=== PATIENT | male | born 1960 | race American Indian/Alaskan Native ===

== ENCOUNTER 2018-03-29 13:26 | Emergency (ER) | payer SELFPAY ==
--- NOTE | 2018-03-29 14:31 | Emergency Department Report ---
Blank Doc - Documentation Documentation: This is a 57 y.o. male that presents with low back pain radiating to right flank x 3 days. This initial assessment diagnostic orders/clinical plan/treatment(s) is/are subject to change based on patient's health status, clinical progression and re- assessment by fellow clinical providers in the ED. Further treatment and workup at subsequent clinical providers discretion. Patient/guardians urged not to elope from ED s their condition may be serious if not clinically assessed and managed. Initial orders include: 1- XR of L-spine. 2- Urinalysis Fast track for further evaluation.
[2018-03-29] MEDS ORDERED: NORCO 5/325 PO ONE (15:20)
[2018-03-29] MEDS ORDERED: FLEXERIL PO ONE (15:20)
[2018-03-29 15:22] VITALS: BP 167/77
[2018-03-29] MEDS ORDERED: DECADRON IM STA (15:23)
--- NOTE | 2018-03-29 15:23 | Emergency Department Report ---
ED Back Pain/Injury HPI - General Chief Complaint: Back Pain/Injury Stated Complaint: BACK PAIN Time Seen by Provider: 03/29/18 14:25 Source: patient, family Mode of arrival: Ambulatory Limitations: No Limitations - History of Present Illness Initial Comments: This is a 57-year-old male here reporting that he has right sided back pain to lower back pain 3 days. He states that he has neck and back problems but he thinks he pulled a muscle and he is not sure because he also has chronic back pain. He says he sees Dr. Colin Chua at [facility] and they did a myelogram in 2018 but they did not tell him the results. Pain is 10 out of 10 achy and pulling. Worse with movement and no alleviating factors. Reportedly he did not take any medication prior to coming to emergency room. Denies any radiation of pain. Denies any loss of bowel or bladder function. Reports pain as being constant. Denies any fever or chills or any urinary burning frequency or urgency. Denies any history of kidney stone or any blood in his urine. MD Complaint: back pain Onset/Timin -: days(s) Similar Symptoms Previously: Yes Place: home Radiation: none Severity: severe Severity scale (0 -10): 10 Quality: aching, other (Pulling) Consistency: constant Improves With: none Worsens With: movement, walking Context: unknown Associated Symptoms: denies: confusion, weakness, chest pain, numbness, difficulty walking, cough, difficulty urinating, incontinence, fever/chills, constipation, headaches, abdominal pain, loss of appetite, malaise, nausea/vomiting, rash, seizure, shortness of breath, syncope Treatments Prior to Arrival: other (none) - Related Data Previous Rx's Medication Instructions Recorded Last Taken Type Cyclobenzaprine [Flexeril 10mg] 10 mg PO Q12H PRN #14 tablet 03/29/18 Unknown Rx traMADol [Ultram 50 MG tab] 50 mg PO Q6HR PRN #12 tablet 03/29/18 Unknown Rx Allergies Allergy/AdvReac Type Severity Reaction Status Date / Time No Known Allergies Allergy Unverified 03/29/18 14:25 ED Review of Systems ROS: Stated complaint: BACK PAIN Other details as noted in HPI Constitutional: denies: chills Respiratory: denies: cough, shortness of breath, wheezing Cardiovascular: denies: chest pain, palpitations, edema, syncope Gastrointestinal: denies: abdominal pain, nausea, vomiting, constipation Genitourinary: denies: urgency, dysuria, frequency, hematuria Musculoskeletal: back pain, myalgia. denies: joint swelling, arthralgia Skin: denies: rash Neurological: denies: headache, numbness, paresthesias, confusion, abnormal gait, vertigo ED Past Medical Hx - Past Medical History Previous Medical History?: Yes Hx Arthritis: Yes (neck and back) Additional medical history: DJD, Cervical Spine pain - Surgical History Past Surgical History?: Yes Additional Surgical History: Cervical neck pain - Family History Family history: hypertension - Social History Smoking Status: Never Smoker Substance Use Type: Prescribed - Medications Home Medications: Home Medications Medication Instructions Recorded Confirmed Last Taken Type Cyclobenzaprine [Flexeril 10mg] 10 mg PO Q12H PRN #14 tablet 03/29/18 Unknown Rx traMADol [Ultram 50 MG tab] 50 mg PO Q6HR PRN #12 tablet 03/29/18 Unknown Rx ED Physical Exam - General Limitations: No Limitations General appearance: alert, in no apparent distress - Head Head exam: Present: atraumatic, normocephalic, normal inspection - Eye Eye exam: Present: normal appearance, PERRL, EOMI Pupils: Present: normal accommodation - ENT ENT exam: Present: normal exam, normal orophraynx - Neck Neck exam: Present: normal inspection, full ROM, other (no C-spine tenderness). Absent: tenderness, lymphadenopathy - Respiratory Respiratory exam: Present: normal lung sounds bilaterally. Absent: respiratory distress, chest wall tenderness - Cardiovascular Cardiovascular Exam: Present: regular rate, normal rhythm, normal heart sounds, other (blood pressure is better at 167/77). Absent: systolic murmur, diastolic murmur - GI/Abdominal GI/Abdominal exam: Present: soft, normal bowel sounds. Absent: distended, tenderness, rigid, bruit - Extremities Exam Extremities exam: Present: normal inspection, full ROM, normal capillary refill, other (No cce. + 2 pulses in all extremities, no neurovascular compromise). Absent: tenderness, pedal edema, joint swelling - Back Exam Back exam: Present: normal inspection, full ROM, tenderness, muscle spasm (right lumbar paraspinal area), paraspinal tenderness (right lumbar paraspinal area), other (ambulates without any difficulties). Absent: CVA tenderness (R), CVA tenderness (L), vertebral tenderness, rash noted - Expanded Back Exam Expanded Back exam: Negative Straight Leg Raising: Left, Right - Neurological Exam Neurological exam: Present: alert, oriented X3, normal gait, reflexes normal, other (no focal deficits). Absent: motor sensory deficit - Psychiatric Psychiatric exam: Present: normal affect, normal mood - Skin Skin exam: Present: warm, dry, intact, normal color. Absent: rash ED Course Vital Signs 03/29/18 03/29/18 03/29/18 14:14 14:26 15:19 Temperature 98.6 F 98.8 F Pulse Rate 89 89 86 Respiratory 18 20 Rate Blood Pressure 166/119 Blood Pressure 166/119 167/77 [Left] O2 Sat by Pulse 96 96 Oximetry - Reevaluation(s) Reevaluation #1: 03/29/18 16:19 Patient given [place] 5/325 2 tablets by mouth, Decadron 10 mg IM and Flexeril 10 mg by mouth for lower back pain with relief pain. Reevaluation #2: 03/29/18 16:50 Patient reports that his pain is much better. ED Medical Decision Making - Lab Data Lab Results 03/29/18 Range/Units 15:25 Urine Color Yellow (Yellow) Urine Turbidity Clear (Clear) Urine pH 5.0 (5.0-7.0) Ur Specific [place] 1.030 (1.003-1.030) Urine Protein 30 mg/dl (Negative) mg/dL Urine Glucose (UA) Neg (Negative) mg/dL Urine Ketones Neg (Negative) mg/dL Urine Blood Neg (Negative) Urine Nitrite Neg (Negative) Urine Bilirubin Neg (Negative) Urine Urobilinogen < 2.0 (<2.0) mg/dL Ur Leukocyte Esterase Neg (Negative) Urine WBC (Auto) 1.0 (0.0-6.0) /HPF Urine RBC (Auto) 4.0 (0.0-6.0) /HPF U Epithel Cells (Auto) < 1.0 (0-13.0) /HPF Urine Mucus 1+ /HPF - Radiology Data Radiology results: report reviewed X-ray lumbar sacral spine dictated radiologist report reviewed by myself. [id number]-[id number] degenerative changes lumbar spine. I am unable to postulate report to the site due to radiology malfunction. - Medical Decision Making This 70-year-old male here complaining right lower back pain and he goes to [facility] orthopedic. Please see notes for detail on examination. X-ray lumbar spine: No acute findings except for degenerative disc disease. Urine-normal findings A/P 1-acute exacerbation of chronic back pain 2: Right lumbar spasm Patient was given Flexeril 10 mg by mouth, Decadron 10 mg IM and flexeril 2 tablets by mouth and was relief of pain. I discussed with him his x-ray results and also his urinalysis and told him he needs to follow up with his orthopedic doctor. He voiced understanding. Vital signs stable and he is afebrile and pain is controlled. Patient discharged home with prescription for Ultram and Flexeril. - Differential Diagnosis FX, subluxation, spasm, strain, degenerative disc disease Critical care attestation.: If time is entered above; I have spent that time in minutes in the direct care of this critically ill patient, excluding procedure time. ED Disposition Clinical Impression: Acute exacerbation of chronic low back pain, Spasm of muscle of lower back Disposition: DC-01 TO HOME OR SELFCARE Is pt being admited?: No Does the pt Need Aspirin: No Condition: Stable Instructions: Muscle Spasm (ED), Chronic Back Pain (ED), Core Strengthening Exercises (GEN) Additional Instructions: Please follow-up with your orthopedic doctor at [facility] orthopedic 3 to 5 days Take medication as prescribed please do not drive or operate heavy machinery while taking Flexeril or Ultram as these medication can cause drowsiness Return to the emergency room, if his symptoms worsen Prescriptions: Cyclobenzaprine [Flexeril 10mg] 10 mg PO Q12H PRN #14 tablet PRN Reason: Spasms traMADol [Ultram 50 MG tab] 50 mg PO Q6HR PRN #12 tablet PRN Reason: Pain Referrals: [facility], orthopedics [Other] - 3-5 Days Forms: Work/School Release Form(ED)
[2018-03-29 15:42] LABS: Bilirubin,Urine NEG (Negative); Blood,Urine NEG (Negative); Color,Urine Yellow (Yellow); Mucus,Urine 1+ /HPF; Urobilinogen,Urine < 2.0 mg/dL (<2.0)
--- NOTE | 2018-03-29 15:42 | XRay Report ---
FINAL REPORT EXAM: XR SPINE LUMBOSACRAL 2-3V HISTORY: low back pain COMPARISON: None. TECHNIQUE: Four views of the lumbar spine FINDINGS: There is no acute fracture or dislocation. There is grade 1 retrolisthesis of L4 on L5. There is diff use intervertebral disc space narrowing throughout the lumbar spine, most severe at L5-S1. There is m oderate facet arthropathy in the lower lumbar spine. The paravertebral soft tissues are normal. IMPRESSION: [id number] degenerative changes of the lumbar spine without acute fracture or dislocation.
== END 2018-03-29 17:44 | disposition home or self-care (01) ==
LOC: ED 13:26
DX: G89.29 Other chronic pain (principal); M54.5 Low back pain; M19.90 Unspecified osteoarthritis, unspecified site
CPT/HCPCS: 72100; 81001; 96372; 99284; J1100

== ENCOUNTER 2018-06-21 23:35 | Emergency (ER) | payer SELFPAY ==
[2018-06-22] MEDS ORDERED: BOOSTRIX IM ONE (08:19)
[2018-06-22] MEDS ORDERED: IBUPROFEN PO ONE (08:19)
--- NOTE | 2018-06-22 08:42 | Emergency Department Report ---
- General Chief complaint: Extremity Injury, Lower Stated complaint: RT FOOT INJURY Time Seen by Provider: 06/22/18 07:53 Source: patient Mode of arrival: Ambulatory Limitations: No Limitations - History of Present Illness Initial comments: This is a 57-year-old male nontoxic, well nourished in appearance, no acute signs of distress presents to the ED with c/o of right foot puncture wound. Patient stated that he slipped on a rug tacks on a carpeted barefoot last night. Patient denies any other injury or trauma. Patient stated he is currently diabetic. Patient denies any allergies. Patient denies any numbness, tingling, decreased sensation, fever, chills, nausea, vomiting, chest pain, shortness of breath, headache or stiff neck. -: Last night Tetanus Up to Date: no Location: R foot Severity: mild Quality: aching Consistency: constant Improves with: none Worsens with: none Associated symptoms: denies other symptoms Treatments Prior to Arrival: none - Related Data Previous Rx's Medication Instructions Recorded Last Taken Type Cyclobenzaprine [Flexeril 10mg] 10 mg PO Q12H PRN #14 tablet 03/29/18 Unknown Rx traMADol [Ultram 50 MG tab] 50 mg PO Q6HR PRN #12 tablet 03/29/18 Unknown Rx Acetaminophen/Codeine [Tylenol 1 tab PO Q6H PRN #12 tab 06/22/18 Unknown Rx /Codeine # 3 tab] Clindamycin [Clindamycin CAP] 300 mg PO Q8H #21 cap 06/22/18 Unknown Rx Allergies Allergy/AdvReac Type Severity Reaction Status Date / Time No Known Allergies Allergy Unverified 03/29/18 14:25 Abscess Boil HPI - HPI Chief Complaint: Extremity Injury, Lower Stated Complaint: RT FOOT INJURY Time Seen by Provider: 06/22/18 07:53 Home Medications: Previous Rx's Medication Instructions Recorded Last Taken Type Cyclobenzaprine [Flexeril 10mg] 10 mg PO Q12H PRN #14 tablet 03/29/18 Unknown Rx traMADol [Ultram 50 MG tab] 50 mg PO Q6HR PRN #12 tablet 03/29/18 Unknown Rx Acetaminophen/Codeine [Tylenol 1 tab PO Q6H PRN #12 tab 06/22/18 Unknown Rx /Codeine # 3 tab] Clindamycin [Clindamycin CAP] 300 mg PO Q8H #21 cap 06/22/18 Unknown Rx Allergies/Adverse Reactions: Allergies Allergy/AdvReac Type Severity Reaction Status Date / Time No Known Allergies Allergy Unverified 03/29/18 14:25 ED Review of Systems ROS: Stated complaint: RT FOOT INJURY Other details as noted in HPI Constitutional: denies: chills, fever Eyes: denies: eye pain, eye discharge, vision change ENT: denies: ear pain, throat pain Respiratory: denies: cough, shortness of breath, wheezing Cardiovascular: denies: chest pain, palpitations Endocrine: no symptoms reported Gastrointestinal: denies: abdominal pain, nausea, diarrhea Genitourinary: denies: urgency, dysuria Musculoskeletal: denies: back pain, joint swelling, arthralgia Skin: denies: rash, lesions Neurological: denies: headache, weakness, paresthesias Psychiatric: denies: anxiety, depression Hematological/Lymphatic: denies: easy bleeding, easy bruising ED Past Medical Hx - Past Medical History Previous Medical History?: Yes Hx Hypertension: Yes Hx Diabetes: Yes Hx Arthritis: Yes (neck and back) Additional medical history: DJD, Cervical Spine pain - Surgical History Past Surgical History?: Yes Additional Surgical History: Cervical neck pain - Social History Smoking Status: Never Smoker Substance Use Type: None - Medications Home Medications: Home Medications Medication Instructions Recorded Confirmed Last Taken Type Cyclobenzaprine [Flexeril 10mg] 10 mg PO Q12H PRN #14 tablet 03/29/18 Unknown Rx traMADol [Ultram 50 MG tab] 50 mg PO Q6HR PRN #12 tablet 03/29/18 Unknown Rx Acetaminophen/Codeine [Tylenol 1 tab PO Q6H PRN #12 tab 06/22/18 Unknown Rx /Codeine # 3 tab] Clindamycin [Clindamycin CAP] 300 mg PO Q8H #21 cap 06/22/18 Unknown Rx ED Physical Exam - General Limitations: No Limitations General appearance: alert, in no apparent distress - Head Head exam: Present: atraumatic, normocephalic - Extremities Exam Extremities exam: Present: normal inspection, full ROM, tenderness, normal capillary refill, other (about 3-4 puncture wounds to right posterior foot. No pus or drainage. No surrounding cellulitis neurovascular intact. No foreign body sensation.). Absent: joint swelling - Expanded Lower Extremity Exam Right Foot/Toe exam: Present: normal inspection, full ROM, tenderness, puncture wound (x4). Absent: swelling, abrasion, laceration, ecchymosis, deformity, crepidus, dislocation, erythema, amputation, foreign body, calcaneal tenderness, tenderness at base of 5th metatarsal, nail avulsion, subungual hematoma Neuro vascular tendon exam: Present: no vascular compromise Gait: Positive: observed and normal 1 - 4 small puncture wounds noted here - Back Exam Back exam: Present: normal inspection, full ROM - Neurological Exam Neurological exam: Present: alert, oriented X3 - Psychiatric Psychiatric exam: Present: normal affect, normal mood - Skin Skin exam: Present: warm, dry, intact, normal color. Absent: rash ED Course Vital Signs 06/22/18 05:20 Temperature 97.5 F L Pulse Rate 78 Respiratory 16 Rate Blood Pressure 161/108 O2 Sat by Pulse 98 Oximetry - Reevaluation(s) Reevaluation #1: 06/22/18 08:40 Patient is speaking in full sentences with no signs of distress noted. ED Medical Decision Making - Medical Decision Making This is a 57-year-old male that presents with puncture wound to right foot. Patient stable was examined by me. Patient received a tetanus booster in the ER. Patient be discharged with clindamycin. Patient was instructed to Follow- up with a primary care doctor in 3-5 days or if symptoms worsen and continue return to emergency room as soon as possible. At time of discharge, the patient does not seem toxic or ill in appearance. No acute signs of distress noted. Patient agrees to discharge treatment plan of care. No further questions noted by the patient. Critical care attestation.: If time is entered above; I have spent that time in minutes in the direct care of this critically ill patient, excluding procedure time. ED Disposition Clinical Impression: Puncture wound of right foot Disposition: DC-01 TO HOME OR SELFCARE Is pt being admited?: No Does the pt Need Aspirin: No Condition: Stable Instructions: Puncture Wound (ED) Additional Instructions: Follow-up with a primary care doctor in 3-5 days or if symptoms worsen and continue return to emergency room as soon as possible. Do not operate any machinery while taking Tylenol with codeine as this may cause drowsiness. Prescriptions: Clindamycin [Clindamycin CAP] 300 mg PO Q8H #21 cap Acetaminophen/Codeine [Tylenol /Codeine # 3 tab] 1 tab PO Q6H PRN #12 tab PRN Reason: Pain Referrals: [facility] [Primary Care Provider] - 3-5 Days PR[facility] [Referring] - 3-5 Days CESAR CHURCH MD [Staff Physician] - 3-5 Days [facility] [Outside] - 3-5 Days
[2018-06-22 08:57] VITALS: BP 172/94
== END 2018-06-22 09:10 | disposition home or self-care (01) ==
LOC: ED 23:35
DX: S91.331A Puncture wound without foreign body, right foot, initial encounter (principal); I10 Essential (primary) hypertension; E11.9 Type 2 diabetes mellitus without complications; M54.2 Cervicalgia; M54.9 Dorsalgia, unspecified; W18.40XA Slipping, tripping and stumbling without falling, unspecified, initial encounter; Y93.89 Activity, other specified; Y92.89 Other specified places as the place of occurrence of the external cause; Y99.8 Other external cause status
CPT/HCPCS: 90471; 90715

== ENCOUNTER 2018-10-20 21:51 | Emergency (ER) | payer SELFPAY ==
[2018-10-21 01:53] VITALS: BP 163/98
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
== END 2018-10-21 05:40 | disposition home or self-care (01) ==
LOC: ED 21:51
DX: S46.819A Strain of other muscles, fascia and tendons at shoulder and upper arm level, unspecified arm, initial encounter (principal); M54.2 Cervicalgia; V89.2XXA Person injured in unspecified motor-vehicle accident, traffic, initial encounter; Y93.89 Activity, other specified; Y92.410 Unspecified street and highway as the place of occurrence of the external cause; Y99.8 Other external cause status
CPT/HCPCS: 72040

== ENCOUNTER 2019-10-01 11:04 | Emergency (ER) | payer SELFPAY ==
--- NOTE | 2019-10-01 13:02 | XRay Report ---
CHEST 1 VIEW INDICATION: Chest Pain. COMPARISON: None FINDINGS: Support devices: None. Heart: Within normal limits. Lungs/Pleura: No acute air space or interstitial disease. Additional findings: None. IMPRESSION: No acute findings. Signer Name: Nicholas Smith Jr, MD Signed: 10/01/2019 12:58 PM Workstation Name: [id number]
[2019-10-01 13:42] LABS: Basophils % (Auto) 0.3 % (0.0-1.8); Eosinophils # (Auto) 0.1 K/mm3 (0.0-0.4); Eosinophils % (Auto) 1.2 % (0.0-4.3); Hematocrit 45.8 % (35.5-45.6); Hemoglobin 14.6 gm/dl (11.8-15.2); Lymphocytes # (Auto) 3.1 K/mm3 (1.2-5.4); Lymphocytes % (Auto) 45.7 % (13.4-35.0); Mean Corpuscular HGB Conc 32 % (32-34); Mean Corpuscular Volume 79 fl (84-94); Monocytes # (Auto) 0.6 K/mm3 (0.0-0.8); Monocytes % (Auto) 8.8 % (0.0-7.3); Platelet Count 294 K/mm3 (140-440); Red Blood Count 5.81 M/mm3 (3.65-5.03); Red Cell Distribution Width 16.7 % (13.2-15.2)
--- NOTE | 2019-10-01 14:05 | Emergency Department Report ---
ED Chest Pain HPI - General Chief Complaint: Chest Pain Stated Complaint: SHANTELLE Time Seen by Provider: 10/01/19 13:52 Source: patient Mode of arrival: Ambulatory Limitations: No Limitations - History of Present Illness Initial Comments: This is a 58-year-old male presenting for evaluation of chest pain. He states that he was exposed to "fumes" 2 nights ago. When he woke up and walked around he started to have chest pressure. He denied cough or shortness of breath. The pressure was nonpleuritic and nonradiating and lasted for 35 minutes. He states he is not experienced this before. This morning he awoke very nauseated and vomited what he had eaten prior. He had no signs of GI bleeding. He did not have any recurrent chest pain. Again he did not experience any shortness of breath. Patient thinks he may have had a stress test 2 to 3 years ago prior to his cervical fusion repair or revision. He is a poor historian and I do not know if this is at all reliable. He states his heart tests involved monitoring before his surgery. Patient is morbidly obese, he has never been a smoker, he is a type II diabetic with a history of hypertension. He does not know his cholesterol status. MD Complaint: chest pain -: During the night Onset: during rest Pain Location: substernal Pain Radiation: none Severity: moderate Severity scale (0 -10): 0 Quality: pressure Consistency: now resolved Improves With: nothing Worsens With: nothing re: nausea, vomting Other Symptoms: denies: cough, fever, syncope Treatments Prior to Arrival: none Aspirin use within the Past 7 Days: (0) No - Related Data Previous Rx's Medication Instructions Recorded Last Taken Type traMADoL [Ultram 50 MG tab] 50 mg PO Q6HR PRN #12 tablet 03/29/18 Unknown Rx Acetaminophen/Codeine [Tylenol 1 tab PO Q6H PRN #12 tab 06/22/18 Unknown Rx /Codeine # 3 tab] Clindamycin [Clindamycin CAP] 300 mg PO Q8H #21 cap 06/22/18 Unknown Rx Cyclobenzaprine [Flexeril 10 MG 10 mg PO QHS PRN #10 tablet 10/21/18 Unknown Rx TAB] Naproxen [Naprosyn] 500 mg PO BID PRN #20 tablet 10/21/18 Unknown Rx Allergies Allergy/AdvReac Type Severity Reaction Status Date / Time No Known Allergies Allergy Verified 10/20/18 21:57 Heart Score - HEART Score History: Highly suspicious EKG: Non-specific Age: 45-65 Risk factors: > 3 risk factors or hx of atherosclerotic disease Troponin: < normal limit HEART Score: 6 - Critical Actions Critical Actions: 4-6 pts:12-16.6% risk of adverse cardiac event. Should be admitted ED Review of Systems ROS: Stated complaint: SHANTELLE Other details as noted in HPI Constitutional: denies: chills, fever Eyes: denies: eye pain, eye discharge, vision change ENT: denies: ear pain, throat pain Respiratory: denies: cough, shortness of breath, wheezing Cardiovascular: chest pain. denies: palpitations Endocrine: no symptoms reported Gastrointestinal: nausea, vomiting. denies: abdominal pain, diarrhea Genitourinary: denies: urgency, dysuria Musculoskeletal: denies: back pain, joint swelling, arthralgia Skin: denies: rash, lesions Neurological: denies: headache, weakness, paresthesias Psychiatric: denies: anxiety, depression Hematological/Lymphatic: denies: easy bleeding, easy bruising ED Past Medical Hx - Past Medical History Previous Medical History?: Yes Hx Hypertension: Yes Hx Diabetes: Yes Hx Arthritis: Yes (neck and back) Additional medical history: DJD, Cervical Spine pain - Surgical History Past Surgical History?: Yes Additional Surgical History: Cervical neck pain - Social History Smoking Status: Never Smoker Substance Use Type: None - Medications Home Medications: Home Medications Medication Instructions Recorded Confirmed Last Taken Type traMADoL [Ultram 50 MG tab] 50 mg PO Q6HR PRN #12 tablet 03/29/18 Unknown Rx Acetaminophen/Codeine [Tylenol 1 tab PO Q6H PRN #12 tab 06/22/18 Unknown Rx /Codeine # 3 tab] Clindamycin [Clindamycin CAP] 300 mg PO Q8H #21 cap 06/22/18 Unknown Rx Cyclobenzaprine [Flexeril 10 MG 10 mg PO QHS PRN #10 tablet 10/21/18 Unknown Rx TAB] Naproxen [Naprosyn] 500 mg PO BID PRN #20 tablet 10/21/18 Unknown Rx ED Physical Exam - General Limitations: Physical Limitation General appearance: alert, in no apparent distress, obese - Head Head exam: Present: atraumatic, normocephalic - Eye Eye exam: Present: normal appearance. Absent: scleral icterus - ENT ENT exam: Present: mucous membranes moist - Neck Neck exam: Present: normal inspection - Respiratory Respiratory exam: Present: normal lung sounds bilaterally. Absent: respiratory distress - Cardiovascular Cardiovascular Exam: Present: regular rate, normal rhythm. Absent: systolic murmur, diastolic murmur, rubs, gallop - GI/Abdominal GI/Abdominal exam: Present: soft, normal bowel sounds. Absent: distended, tenderness, guarding, rebound, rigid - Rectal Rectal exam: Present: deferred - Extremities Exam Extremities exam: Present: normal inspection. Absent: pedal edema, joint swelling, calf tenderness - Back Exam Back exam: Present: normal inspection - Neurological Exam Neurological exam: Present: alert, oriented X3, CN II-XII intact. Absent: motor sensory deficit - Psychiatric Psychiatric exam: Present: normal affect, normal mood - Skin Skin exam: Present: warm, dry, intact, normal color. Absent: rash ED Course Vital Signs 10/01/19 11:50 Temperature 98.0 F Pulse Rate 82 Respiratory 18 Rate Blood Pressure 140/78 [Right] O2 Sat by Pulse 95 Oximetry - Reevaluation(s) Reevaluation #1: Patient has multiple risk factors for ACS. He will be referred to the hospitalist service. 10/01/19 14:24 10/01/19 14:24 LILLY score - Lilly Score Age > 65: (0) No Aspirin use within the Past 7 Days: (0) No 3 or more CAD Risk Factors: (1) Yes 2 or more Angina events in past 24 hrs: (0) No Known CAD with more than 50% Stenosis: (0) No ST Deviation Greater than 0.5mm: (0) No ED Medical Decision Making - Lab Data Result diagrams: 10/01/19 12:28 10/01/19 12:28 Laboratory Results - last 24 hr 10/01/19 10/01/19 12:28 12:28 WBC 6.7 RBC 5.81 H Hgb 14.6 Hct 45.8 H MCV 79 L MCH 25 L MCHC 32 RDW 16.7 H Plt Count 294 Lymph % (Auto) 45.7 H [place] % (Auto) 8.8 H Eos % (Auto) 1.2 Baso % (Auto) 0.3 Lymph # 3.1 [place] # 0.6 Eos # 0.1 Baso # 0.0 Seg Neutrophils % 44.0 Seg Neutrophils # 2.9 Sodium 137 Potassium 4.7 Chloride 98.3 Carbon Dioxide 24 Anion Gap 19 BUN 12 Creatinine 1.1 Estimated GFR > 60 BUN/Creatinine Ratio 11 Glucose 129 H Calcium 10.1 Troponin T < 0.010 - EKG Data -: EKG Interpreted by [facility] EKG shows normal: sinus rhythm, axis, intervals, QRS complexes, ST-T waves Rate: normal - EKG Data Interpretation: no acute changes - Radiology Data Radiology results: report reviewed (No acute process) Critical care attestation.: If time is entered above; I have spent that time in minutes in the direct care of this critically ill patient, excluding procedure time. ED Disposition Clinical Impression: Chest pain Qualifiers: Chest pain type: unspecified Qualified Code(s): R07.9 - Chest pain, unspecified Type 2 diabetes mellitus Qualifiers: Diabetes mellitus rn long term care insulin use: unspecified rn long term care insulin use status Diabetes mellitus complication status: with other specified complication Qualified Code(s): E11.69 - Type 2 diabetes mellitus with other specified complication Disposition: DC-09 OP ADMIT IP TO THIS HOSP Is pt being admited?: Yes Does the pt Need Aspirin: Yes Condition: Stable Instructions: Chest Pain (ED), Diabetes Mellitus Type 2 in Adults (ED) Referrals: PRIMARY CARE, [Primary Care Provider] - 3-5 Days Time of Disposition: 15:47
[2019-10-01 14:06] LABS: BUN/Creatinine Ratio 11; Blood Urea Nitrogen 12 mg/dL (9-20); Calcium 10.1 mg/dL (8.4-10.2); Hemolysis Index 18
[2019-10-01] MEDS ORDERED: ASPIRIN 325 MG TAB PO ONE (15:48)
[2019-10-01 17:33] VITALS: BP 143/86
--- NOTE | 2019-10-01 17:40 | Event Note ---
Date: 10/01/19 58-year-old male presents to ED for evaluation after inhalation of noxious fumes. Patient seen and evaluated in the emergency department. Lab and imaging studies reviewed. Patient reports recent fall presenting to ED for evaluation is due to nausea and 2 episodes of vomiting upon awakening from sleep this morning and discovering smelled foul smelling odor in his apartment. Patient acknowledges a burning sensation in his throat followed by vomiting. Patient denies fever, chills, chest pain, palpitation, productive cough, skin rash, prolonged travel/immobility, unilateral leg swelling, calf pain, hemoptysis, individual/family history of DVT/PE/bleeding/blood clotting disorders, recent ill contacts, or known exposure to COVID-19. Patient seen and evaluated in the emergency department and found to have the aforementioned symptoms secondary to inhalation of noxious fumes. Cardiac enzymes, EKG, and telemetry monitoring are unremarkable for acute cardiac ischemia. Patient medically optimized and back to usual state of health and subsequently discharged home. Patient instructed to avoid contact with noxious fumes for the next 48 hours. Patient struck to follow-up with primary care physician within 3 to 5 days. Patient instructed to undergo all appropriate age-related health screenings. Physical Exam - General Limitations: Physical Limitation General appearance: alert, in no apparent distress, obese - Head Head exam: Present: atraumatic, normocephalic - Eye Eye exam: Present: normal appearance. Absent: scleral icterus - ENT ENT exam: Present: mucous membranes moist - Neck Neck exam: Present: normal inspection - Respiratory Respiratory exam: Present: normal lung sounds bilaterally. Absent: respiratory distress - Cardiovascular Cardiovascular Exam: Present: regular rate, normal rhythm. Absent: systolic murmur, diastolic murmur, rubs, gallop - GI/Abdominal GI/Abdominal exam: Present: soft, normal bowel sounds. Absent: distended, tenderness, guarding, rebound, rigid - Rectal Rectal exam: Present: deferred - Extremities Exam Extremities exam: Present: normal inspection. Absent: pedal edema, joint swelling, calf tenderness - Back Exam Back exam: Present: normal inspection - Neurological Exam Neurological exam: Present: alert, oriented X3, CN II-XII intact. Absent: motor sensory deficit - Psychiatric Psychiatric exam: Present: normal affect, normal mood - Skin Skin exam: Present: warm, dry, intact, normal color. Absent: rash
== END 2019-10-01 17:58 | disposition admitted as inpatient to this hospital (09) ==
LOC: ED 11:04
DX: E11.9 Type 2 diabetes mellitus without complications (principal); R07.9 Chest pain, unspecified; I10 Essential (primary) hypertension; M19.90 Unspecified osteoarthritis, unspecified site; Z79.899 Other long term (current) drug therapy; Z98.890 Other specified postprocedural states
CPT/HCPCS: 36415; 71045; 80048; 84484; 85025; 93005